=== PATIENT | female | born 1965 | race Caucasian/White ===

== ENCOUNTER 2016-08-11 12:39 | Emergency (ER) | payer BC ==
[2016-08-11 12:45] VITALS: BP 117/58; PULSE 73; TEMP 97.6; BMI 20.5
--- NOTE | 2016-08-11 13:40 | PDOC ---
History of Present Illness - General Chief Complaint: Redness To Affected Area Stated Complaint: RT ELBOW REDNESS, SWELLING Time Seen by Provider: 08/11/16 12:42 - History of Present Illness Initial Comments: 08/11/16 15:23 Complaint: Pain right elbow History of present illness: Over the weekend, the patient states she noted a pimple on the lateral aspect of her elbow. She squeezed it, washed and dressed it. Yesterday there was increased redness and pain, and she went to urgent care. She was begun on Keflex 500 mg and has had 3 doses. The elbow has not improved. Review of systems: No fever/chills, distal numbness tingling pain or weakness, axillary pain or swelling, or ascending redness. Remaining systems negative Social/family history reviewed and noncontributory Physical exam: Alert and oriented well-developed well-nourished distress cheerful and cooperative Afebrile, vital signs normal ENT clear Neck supple without mass or nodes Lungs clear CV regular without murmur or gallop Abdomen benign Extremities: There is a pustule over the radial head, laterally, right elbow. There is mild surrounding erythema approximately 3-4 cm in diameter. There is minimal induration. There is full range of motion of the elbow in flexion and extension supination and pronation with minimal pain. There is no ascending lymphangitis. No axillary nodes or tenderness. Pulses are full and there are no distal sensory deficits Impression: Mild cellulitis secondary to pustule on the elbow. On appropriate antibiotics. Plan: Continue Keflex and another 24 hours. Warm compresses rest and elevation. Patient is advised to stay home from work, keep the arm in a sling, and avoid use of the arm completely. Keflex is increased to 500 mg 4 times a day from TID. The patient was advised to have the arm rechecked in 24 hours. Fully ambulatory and in minimal pain or other discomfort upon discharge to follow up as directed. Past History - Past Medical History Allergies/Adverse Reactions: Allergies Allergy/AdvReac Type Severity Reaction Status Date / Time sulfamethoxazole Allergy Verified 08/11/16 12:40 [From Bactrim] trimethoprim [From Bactrim] Allergy Verified 08/11/16 12:40 Home Medications: Ambulatory Orders Cephalexin [Keflex] mg PO TID 08/11/16 - Psycho/Social/Smoking Cessation Hx Anxiety: No Suicidal Ideation: No Smoking History: Never smoked Hx Alcohol Use: No Drug/Substance Use Hx: No *Physical Exam - Vital Signs Last Vital Signs Temp Pulse Resp BP Pulse Ox 97.6 F 73 18 117/58 99 08/11/16 12:40 08/11/16 12:40 08/11/16 12:40 08/11/16 12:40 08/11/16 12:40 Medical Decision Making - Medical Decision Making 08/11/16 15:30 Pustule was cleansed with normal saline and dried. The roof was within a culture was taken. Dressed with bacitracin and Band-Aid. Sling applied. Absolute rest and elevation were recommended with follow-up in 24 hours. *DC/Admit/Observation/Transfer Diagnosis at time of Disposition: Cellulitis Qualifiers: Site of cellulitis: extremity Site of cellulitis of extremity: upper extremity Laterality: right Qualified Code(s): L03.113 - Cellulitis of right upper limb - Discharge Dispostion Disposition: HOME Condition at time of disposition: Stable - Patient Instructions Additional Instructions: Absolute rest and elevation of the arm. Increase antibiotics to 4 times daily. Recheck 24 hours if symptoms do not improve or if symptoms are worse, including increased pain, redness, swelling, or drainage. Take care of the wound as directed, cleaned thoroughly with sterile saline, and dressed with bacitracin twice daily. - Post Discharge Activity Work/School Note: Back to Work
== END 2016-08-11 13:45 | disposition home or self-care (01) ==
LOC: FER 12:39
DX: L03.113 Cellulitis of right upper limb (principal)
CPT/HCPCS: 87070; 87186; 87205; 99282-25

== ENCOUNTER 2016-08-13 12:25 | Emergency (ER) | payer BC ==
--- NOTE | 2016-08-13 12:30 | PDOC ---
History of Present Illness - General Chief Complaint: Wound Stated Complaint: RT ELBOW WOUND Time Seen by Provider: 08/13/16 12:27 History Source: Patient Exam Limitations: No Limitations - History of Present Illness Initial Comments: 08/13/16 12:28 The patient is a 50-year-old female, immunocompetent, with no significant past medical history, who presents to the emergency department with increasing pain and redness of her right elbow. She developed the symptoms on August 07 when she had "a pimple" which she "popped." On August 10 she was evaluated at an urgent care and was placed on Keflex. She was then evaluated in our emergency department on the . At that time, she had evidence of cellulitis, and some potential evidence of an abscess which had spontaneously drained. She was told to continue the Keflex. Since that time, her symptoms have worsened. In particular, the redness has increased, the pain has mildly increased. She denies fever, chills, sweats. 08/13/16 12:29 08/13/16 12:45 Past History - Past Medical History Allergies/Adverse Reactions: Allergies Allergy/AdvReac Type Severity Reaction Status Date / Time sulfamethoxazole Allergy Verified 08/13/16 12:26 [From Bactrim] trimethoprim [From Bactrim] Allergy Verified 08/13/16 12:26 Home Medications: Ambulatory Orders Clindamycin [Cleocin -] 300 mg PO Q6HPO #28 capsule 08/13/16 - Psycho/Social/Smoking Cessation Hx Anxiety: No Suicidal Ideation: No Smoking History: Never smoked Hx Alcohol Use: No Drug/Substance Use Hx: No Review of Systems - Review of Systems Comments:: 08/13/16 12:29 CONSTITUTIONAL: Absent: fever, chills, fatigue EYES: Absent: visual changes ENT: Absent: ear pain, sore throat CARDIOVASCULAR: Absent: chest pain, palpitations, loss of consciousness RESPIRATORY: Absent: cough, SOB GI: Absent: abdominal pain, nausea, vomiting, constipation, diarrhea GENITOURINARY: Absent: dysuria, frequency, hematuria MUSKULOSKELETAL: Absent: back pain, arthralgia, myalgia SKIN: Present: see HPI NEURO: Absent: headache, dizziness *Physical Exam - Physical Exam Comments: 08/13/16 12:30 GENERAL: Well developed, well nourished. Awake and alert. No acute distress. HEENT: Normocephalic, atraumatic. PERRLA, EOMI. No conjunctival pallor. Sclera are non- icteric. Moist mucous membranes. Oropharynx is clear. NECK: Supple. Full ROM. No JVD. Carotid pulses 2+ and symmetric, without bruits. No thyromegaly. No lymphadenopathy. CARDIOVASCULAR: Regular rate and rhythm. No murmurs, rubs, or gallops. Distal pulses are 2+ and symmetric. PULMONARY: No evidence of respiratory distress. Lungs clear to auscultation bilaterally. No wheezing, rales or rhonchi. ABDOMINAL: Soft. Non-tender. Non-distended. No rebound or guarding. No organomegaly. Normoactive bowel sounds. MUSCULOSKELETAL Normal range of motion at all joints. No bony deformities or tenderness. No CVA tenderness. EXTREMITIES: No cyanosis. No clubbing. No edema. No calf tenderness. She has full range of motion at her right elbow. SKIN: There is a 3 cm x 3 cm area of induration with minimal fluctuance at the right lateral elbow. It is minimally tender. There is minimal overlying erythema with warmth. Warm and dry. Normal capillary refill. No rashes. No jaundice. NEUROLOGICAL: Alert, awake, appropriate. Cranial nerves 2-12 intact. No deficits to light touch and temperature in face, upper extremities and lower extremities. No motor deficits in the in face, upper extremities and lower extremities. Normoreflexic in the upper and lower extremities. Normal speech. Toes are down- going bilaterally. Gait is normal without ataxia. PSYCHIATRIC: Cooperative. Good eye contact. Appropriate mood and affect. 08/13/16 12:49 08/13/16 12:50 Procedures - Incision and Drainage I&D Site: Right: Arm (elbow) Betadine cleansed: Yes Anesthesia: 1% Lidocaine Volume(ml): 3 (ml) Blade Size: 11 Attempts: 1 Plain Packing: No Complications: none Dressing: Yes Medical Decision Making - Medical Decision Making 08/13/16 12:46 The patient is well-appearing and in no acute distress She has clinical evidence of small, superficial abscess There is no evidence of bursa or intra-articular involvement There is no evidence of sepsis or deep tissue infection Preliminary MRSA results noted I had previously called the patient and prescribed clindamycin, which she picked up at the pharmacy, but has not yet taken Area was incised and drained She will continue clindamycin Clinical impression: Elbow abscess I discussed the physical exam findings, ancillary test results and final diagnoses with the patient. I answered all of the patient's questions. The patient was satisfied with the care received and felt comfortable with the discharge plan and treatment plan. The patient will call their primary care physician within 24 hours to arrange follow-up and will return to the Emergency Department with any new, persistent or worsening symptoms. 08/13/16 12:51 *DC/Admit/Observation/Transfer Diagnosis at time of Disposition: Abscess - Discharge Dispostion Disposition: HOME - Patient Instructions Printed Discharge Instructions: DI for Skin Abscess Additional Instructions: Return to the emergency department immediately with ANY new, persistent or worsening symptoms. You MUST call and follow up with your doctor tomorrow. Please make sure your doctor reviews the results of your emergency department evaluation.
[2016-08-13 12:36] VITALS: BP 126/79; PULSE 66; TEMP 98; BMI 20.5
== END 2016-08-13 12:55 | disposition home or self-care (01) ==
LOC: FER 12:25
PROC: 0H9DXZZ Drainage of Right Lower Arm Skin, External Approach (ICD-10-PCS; principal; 2016-08-13)
DX: L02.413 Cutaneous abscess of right upper limb (principal)
CPT/HCPCS: 99283-25